=== PATIENT | male | born 1940 | race Hispanic/Latino ===

== ENCOUNTER 2023-07-17 10:02 | Outpatient (CLI) | payer MEDICARE, OTHER | END 2023-07-17 10:03 | disposition home or self-care (01) | LOC: CSHRAD 10:02 | PROVIDERS: ATTEND Neurological Surgery | DX: M43.16 Spondylolisthesis, lumbar region (principal); Z98.890 Other specified postprocedural states; M47.816 Spondylosis without myelopathy or radiculopathy, lumbar region | CPT/HCPCS: 72100 ==